=== PATIENT | female | born 1990 | race African-American/Black ===

== ENCOUNTER 2022-01-16 12:35 | Emergency (ER) | payer SELFPAY ==
[~2022-01-16] VITALS: Ht 162.6 cm; Wt 113.4 kg
--- NOTE | 2022-01-16 12:35 | NUR ---
REGGIE LOPEZ VIA GURNEY TO BED 02.
[2022-01-16 12:40] VITALS: BP 111/72
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
--- NOTE | 2022-01-16 12:42 | NUR ---
PT ASSISTED BY KRYSTINA JAIMES TO CHAIR C.
--- NOTE | 2022-01-16 12:55 | NUR ---
PA PAUL EVALUATING PT AT THIS TIME
[2022-01-16] MEDS ORDERED: IBUPROFEN 600 MG TAB PO ONE (13:00)
--- NOTE | 2022-01-16 13:02 | NUR ---
PT REFUSED ALL NURSING CARE AND BECAME VERBALLY AGGRESSIVE AND CURSING AT STAFF. KARINE PAUL MADE AWARE
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
== END 2022-01-16 13:05 ==
LOC: MED 12:35
DX: S40.021A Contusion of right upper arm, initial encounter (principal); F10.129 Alcohol abuse with intoxication, unspecified; Z00.01 Encounter for general adult medical examination with abnormal findings; R51.9 Headache, unspecified; X58.XXXA Exposure to other specified factors, initial encounter; Y92.89 Other specified places as the place of occurrence of the external cause; Y93.89 Activity, other specified; Y99.8 Other external cause status
CPT/HCPCS: 99283